=== PATIENT | female | born 1960 | race Caucasian/White ===

== ENCOUNTER → 2016-11-16 | Outpatient (CLI) | payer MEDICARE, OTHER | END | disposition home or self-care (01) | LOC: CSSDAY 09:09 | DX: R51 Headache (principal); Z79.899 Other long term (current) drug therapy | CPT/HCPCS: 96365; 96367; 96374; J1100; J3475 ==

== ENCOUNTER → 2016-11-19 | Outpatient (CLI) | payer MEDICARE, OTHER | END | disposition home or self-care (01) | LOC: CSSDAY 12:28 | DX: R51 Headache (principal); Z79.899 Other long term (current) drug therapy | CPT/HCPCS: 96365; 96367; 96374; J1100; J3475 ==

== ENCOUNTER → 2016-11-20 | Outpatient (CLI) | payer MEDICARE, OTHER | END | disposition home or self-care (01) | LOC: CSSDAY 10:00 | DX: R51 Headache (principal); Z79.899 Other long term (current) drug therapy | CPT/HCPCS: 96365; 96367; 96375; J1100; J3475 ==

== ENCOUNTER → 2016-11-21 | Outpatient (CLI) | payer MEDICARE, OTHER | END | disposition home or self-care (01) | LOC: CSSDAY 10:00 | DX: R51 Headache (principal); Z79.899 Other long term (current) drug therapy | CPT/HCPCS: 96365; 96367; 96374; J1100; J3475 ==

== ENCOUNTER → 2016-11-22 | Outpatient (CLI) | payer MEDICARE, OTHER | END | disposition home or self-care (01) | LOC: CSSDAY 10:00 | DX: R51 Headache (principal); Z79.899 Other long term (current) drug therapy | CPT/HCPCS: 96365; 96367; 96374; J1100; J3475 ==